=== PATIENT | female | born 2000 | race Hispanic/Latino ===

== ENCOUNTER 2019-08-23 00:04 | Emergency (ER) | payer BC, MEDICAID ==
[2019-08-23 00:23] LABS: APPEARANCE,URINE Turbid (CLEAR); BILIRUBIN,URINE Negative (NEGATIVE); COLOR,URINE Yellow (YELLOW); GLUCOSE, URINE (UA) Negative (NEGATIVE); KETONES,URINE Negative (NEGATIVE); LEUKOCYTE ESTERASE ,URINE Small (NEGATIVE); NITRATE,URINE Negative (NEGATIVE); OCCULT BLOOD,URINE Large (NEGATIVE); PH,URINE 6.5 (5.0-8.0); PROTEIN,URINE Negative (NEGATIVE)
[2019-08-23] MEDS ORDERED: NITROFURANTOIN MONOHYD/M-CRYST 100 MG CAPSULE PO ONE (00:39)
[2019-08-23 00:45] LABS: AMORPHOUS SEDIMENT,UR Many /LPF (None Seen); BACTERIA,URINE Few /HPF (None Seen); SQUAMOUS EPITHELIAL CELL,UR Moderate /HPF (0-2)
== END 2019-08-23 00:48 | disposition home or self-care (01) ==
LOC: EDH 00:04
DX: O23.41 Unspecified infection of urinary tract in pregnancy, first trimester (principal); O20.0 Threatened abortion; Z3A.13 13 weeks gestation of pregnancy; Z88.5 Allergy status to narcotic agent
CPT/HCPCS: 81001; 87088

== ENCOUNTER 2019-12-12 16:59 | Inpatient (IN) | payer BC ==
[~2019-12-12] VITALS: Ht 152.4 cm; Wt 79.8 kg
[2019-12-12] MEDS ORDERED: MAGNESIUM SULFATE 1,000 ML IV PRN (17:50)
[2019-12-12] MEDS ORDERED: LACTATED RINGERS 1000ML 1,000 ML IV PRN (17:50)
[2019-12-12] MEDS ORDERED: LACTATED RINGERS 1000ML 1,000 ML IV ONE (17:53)
[2019-12-12] MEDS ORDERED: MAGNESIUM 4GM PREMIX 100ML 100 ML IV ONE ×2 (17:54→17:59)
[2019-12-12] MEDS ORDERED: MAGNESIUM SULFATE 1,000 ML IV ONE (17:55)
[2019-12-12] MEDS ORDERED: CELESTONE SOLUSPAN 6 MG/ML 5ML VIAL ONE (17:59)
[2019-12-12] MEDS ORDERED: CALCIUM GLUCONATE 1 GM/10 ML VIAL IV PRN (18:00)
[2019-12-12] MEDS ORDERED: MAGNESIUM 4GM PREMIX 100ML 100 ML IV SCH (18:00)
[2019-12-12] MEDS ORDERED: CELESTONE SOLUSPAN 6 MG/ML 5ML VIAL IM SCH (18:00)
[2019-12-12] MEDS ORDERED: MAGNESIUM 2GM PREMIX 50ML 50 ML IV SCH (18:00)
[2019-12-12] MEDS ORDERED: MAGNESIUM 4GM PREMIX 100ML 100 ML IV PRN (18:00)
[2019-12-12 18:19] LABS: HEMATOCRIT 33.8 % (36-48); MEAN CORPUSCULAR HEMOGLOBIN 28.4 pg (27.0-33.0); MEAN CORPUSCULAR HGB CONC 32.2 g/dL (32.0-36.0); RED BLOOD CELL COUNT(AUTO) 3.84 MIL/uL (4.00-5.50); RED CELL DISTRIBUTION WIDTH 13.3 % (11.0-15.5); WHITE BLOOD COUNT (AUTO) 12.3 K/uL (4.8-10.8)
[2019-12-12 18:21] LABS: APPEARANCE,URINE Clear (CLEAR); BILIRUBIN,URINE Negative (NEGATIVE); COLOR,URINE Yellow (YELLOW); GLUCOSE, URINE (UA) Negative (NEGATIVE); KETONES,URINE Negative (NEGATIVE); LEUKOCYTE ESTERASE ,URINE Large (NEGATIVE); NITRATE,URINE Negative (NEGATIVE); OCCULT BLOOD,URINE Trace (NEGATIVE); PROTEIN,URINE Negative (NEGATIVE); UROBILINOGEN,URINE 0.2 mg/dL (0.2-1.0)
[2019-12-12] MEDS ORDERED: ONDANSETRON HCL 4 MG/2 ML VIAL ONE (18:28)
[2019-12-12 18:29] LABS: AMPHET/METH SCREEN,URINE NEGATIVE (NEGATIVE); BARBITURATE SCREEN, URINE NEGATIVE (NEGATIVE); BENZODIAZEPINES SCREEN,URINE NEGATIVE (NEGATIVE); CANNABINOID SCREEN,URINE NEGATIVE (NEGATIVE); COCAINE SCREEN,URINE NEGATIVE (NEGATIVE); OPIATE SCREEN,URINE NEGATIVE (NEGATIVE); PHENCYCLIDINE SCREEN,URINE NEGATIVE (NEGATIVE)
[2019-12-12 18:31] LABS: RBC,URINE 0-1 /HPF (0-1)
[2019-12-12 18:32] LABS: BACTERIA,URINE Few /HPF (None Seen); SQUAMOUS EPITHELIAL CELL,UR Few /HPF (0-2)
[2019-12-12 19:06] VITALS: BP 127/70
[2019-12-12] MEDS ORDERED: ONDANSETRON HCL 4 MG/2 ML VIAL IVP SCH (19:15)
[2019-12-12] MEDS ORDERED: PORACTANT ALFA 240 MG/3 ML VIAL IH ONE (19:57)
[2019-12-12] MEDS ORDERED: WITCH HAZEL 1 PAD TP PRN (20:30)
[2019-12-12] MEDS ORDERED: ACETAMINOPHEN-CODEINE 300/30MG TAB PO PRN (20:30)
[2019-12-12] MEDS ORDERED: LANOLIN 30GM OINTMENT TP PRN (20:30)
[2019-12-12] MEDS ORDERED: OXYTOCIN-LR 20 UNITS/1000 ML 1,000 ML IV SCH (20:30)
[2019-12-12] MEDS ORDERED: MEASLES/MUMPS/RUBELLA VACCINE, LIVE 0.5 ML/VIAL SQ PRN (20:30)
[2019-12-12] MEDS ORDERED: IBUPROFEN 600 MG TABLET PO PRN (20:30)
[2019-12-12] MEDS ORDERED: BENZOCAINE/LANOLIN/ALOE VERA 60 ML AEROSOL TP PRN (20:30)
[2019-12-12] MEDS ORDERED: ACETAMINOPHEN 325 MG TAB PO PRN (20:30)
[2019-12-12] MEDS ORDERED: DIPH,PERTUSS(ACELL),TET VAC/PF 0.5 ML VIAL IM PRN (20:30)
[2019-12-12] MEDS ORDERED: LIDOCAINE HCL 1% 20 ML VIAL ONE (22:24)
[2019-12-12] MEDS: DOCUSATE SODIUM 100 MG CAP PO SCH (22:26)
--- NOTE | 2019-12-12 23:27 | NUR ---
TRANSPORT TEAM IN PT'S ROOM WITH BABY AT 2327 AND LEFT AT 2334 TO TRANSFER BABY TO [place]. Addendum: 12/13/19 at 0105 by MAGALIS HOANG RN RN Amended: Links added.
[2019-12-12 23:45] VITALS: BP 125/69
[2019-12-13] MEDS ORDERED: PREN-154 PO (00:24)
[2019-12-13] MEDS: OXYTOCIN-LR 20 UNITS/1000 ML 1,000 ML IV SCH ×2 (01:06→01:22)
[2019-12-13] MEDS: CLINDAMYCIN 600 MG/D5% WATER 50 ML IV SCH ×5 (01:26→06:22)
[2019-12-13 02:44] VITALS: BP 114/72
[2019-12-13 08:02] LABS: MEAN CORPUSCULAR HEMOGLOBIN 28.4 pg (27.0-33.0); MEAN CORPUSCULAR HGB CONC 32.4 g/dL (32.0-36.0); MEAN CORPUSCULAR VOLUME 87.9 fL (80-100); RED BLOOD CELL COUNT(AUTO) 3.87 MIL/uL (4.00-5.50); RED CELL DISTRIBUTION WIDTH 13.2 % (11.0-15.5); WHITE BLOOD COUNT (AUTO) 20.2 K/uL (4.8-10.8)
[2019-12-13 08:09] VITALS: BP 124/67
[2019-12-13] MEDS: DOCUSATE SODIUM 100 MG CAP PO SCH (08:29)
--- NOTE | 2019-12-13 08:45 | NUR ---
Dr. López called and gave her an update on her pt, and ordered that pt can be discharged Addendum: 12/13/19 at 0859 by MARTÍN GENAO RN Amended: Links added.
--- NOTE | 2019-12-13 08:55 | NUR ---
pt is discharge in stable condition, verbal and written discharge instructions given, refer to exit care. Informed of the follow up appointment, prescription given. Informed to call the doctor for future concerns. Pt voiced understanding to all things discussed. Addendum: 12/13/19 at 0904 by MARTÍN GENAO RN Amended: Links added.
--- NOTE | 2019-12-13 09:40 | NUR ---
pt is dismissed in stable condition, brought to private car via wheelchair by Danielle Garcia pcp Addendum: 12/13/19 at 0950 by MARTÍN GENAO RN Amended: Links added.
[2019-12-13 12:47] LABS: RAPID PLASMA REAGIN NONREACTIVE (NONREACTIVE)
[2019-12-14 10:14] LABS: HEPATITIS Bs ANTIGEN SCREEN P Negative (Negative)
== END 2019-12-13 09:40 | disposition home or self-care (01) | DRG 807 ==
LOC: EDH 16:59 → OBSVTOIN 17:00 → LDH 17:00 → WSH 12-13 00:35
PROC: 10E0XZZ Delivery of Products of Conception, External Approach (ICD-10-PCS; principal; 2019-12-12)
PROC: 0KQM0ZZ Repair Perineum Muscle, Open Approach (ICD-10-PCS; 2019-12-12)
PROC: 3E0234Z Introduction of Serum, Toxoid and Vaccine into Muscle, Percutaneous Approach (ICD-10-PCS; 2019-12-12)
PROC: 3E0134Z Introduction of Serum, Toxoid and Vaccine into Subcutaneous Tissue, Percutaneous Approach (ICD-10-PCS; 2019-12-12)
DX: O60.14X0 Preterm labor third trimester with preterm delivery third trimester, not applicable or unspecified (principal); Z37.0 Single live birth; O70.1 Second degree perineal laceration during delivery; Z3A.28 28 weeks gestation of pregnancy; Z23 Encounter for immunization
CPT/HCPCS: 36415; 76805; 80305; 81001; 85027; 86592; 86701; 86850; 86900; 86901; 87088; 87340; 87390; 90707; A4314; G0378; J0702; J2405; J2590; J3475; J3490; J7120

== ENCOUNTER 2023-06-04 12:04 | Emergency (ER) | payer MEDICAID, OTHER ==
[~2023-06-04] VITALS: Ht 152.4 cm; Wt 81.6 kg
[2023-06-04 12:16] VITALS: BP 127/83; PULSE 71; RESP 18
[2023-06-04 12:51] LABS: HCG,QUALITATIVE URINE NEGATIVE (NEGATIVE)
[2023-06-04 12:53] LABS: APPEARANCE,URINE TURBID (CLEAR); BILIRUBIN,URINE NEGATIVE (NEGATIVE); COLOR,URINE RED (YELLOW); GLUCOSE, URINE (UA) NEGATIVE (NEGATIVE); KETONES,URINE NEGATIVE (NEGATIVE); LEUKOCYTE ESTERASE ,URINE TRACE Leu/uL (NEGATIVE); NITRATE,URINE NEGATIVE (NEGATIVE); OCCULT BLOOD,URINE LARGE (NEGATIVE); PROTEIN,URINE 100 mg/dL (NEGATIVE); UROBILINOGEN,URINE 0.2 mg/dL (0.2-1.0)
[2023-06-04 12:54] LABS: ADD UA MICROSCOPIC YES
[2023-06-04 12:55] LABS: BACTERIA,URINE Rare /HPF (None Seen); RBC,URINE TNTC /HPF (0-1); SQUAMOUS EPITHELIAL CELL,UR Rare /HPF (0-2)
[2023-06-04 13:33] LABS: BASOPHILS # (AUTO) 0.03 K/uL (0.00-0.20); BASOPHILS % (AUTO) 0.5 % (0.0-5.0); EOSINOPHILS # (AUTO) 0.14 K/uL (0.00-0.70); EOSINOPHILS % (AUTO) 2.4 % (0.0-8.0); HEMATOCRIT 36.7 % (36-48); IMMATURE GRANULOCYTE ABSOLUTE 0.01 K/uL (0-1); LYMPHOCYTES # (AUTO) 2.2 K/uL (1.0-4.8); MEAN CORPUSCULAR HEMOGLOBIN 27.2 pg (27.0-33.0); MEAN CORPUSCULAR VOLUME 82.5 fL (79-99); MONOCYTES # (AUTO) 0.4 K/uL (0.1-1.0); MONOCYTES % (AUTO) 6.9 % (3.0-13.0); PLATELET COUNT (AUTO) 257 K/uL (130-400); RED BLOOD CELL COUNT(AUTO) 4.45 MIL/uL (4.00-5.50); RED CELL DISTRIBUTION WIDTH 13.2 % (11.0-15.5); WHITE BLOOD COUNT (AUTO) 5.8 K/uL (4.8-10.8)
[2023-06-04 14:07] LABS: CREATININE 0.6 mg/dL (0.5-1.5); POTASSIUM 4.1 mmol/L (3.5-5.1)
[2023-06-04 14:14] LABS: ALBUMIN 3.7 g/dL (3.5-5.0); BILIRUBIN,TOTAL 0.2 mg/dL (0.2-1.0); TOTAL PROTEIN, SERUM 7.3 g/dL (6.0-8.3)
== END 2023-06-04 14:46 | disposition home or self-care (01) ==
LOC: EDH 12:04
DX: N93.8 Other specified abnormal uterine and vaginal bleeding (principal); Z88.0 Allergy status to penicillin; Z88.8 Allergy status to other drugs, medicaments and biological substances
CPT/HCPCS: 36415; 80053; 81001; 81025; 84702; 85025

== ENCOUNTER 2023-07-28 12:15 | Emergency (ER) | payer OTHER ==
[~2023-07-28] VITALS: Ht 152.4 cm; Wt 81.6 kg
[2023-07-28] MEDS: DEXAMETHASONE SOD PHOSPHATE 4 MG/ML 1ML VIAL IM ONE (13:25)
[2023-07-28] MEDS: IBUPROFEN 800 MG TAB PO ONE (13:26)
[2023-07-28] MEDS ORDERED: IBUP-2077 PO (13:58)
[2023-07-28 15:05] VITALS: BP 131/102; PULSE 86; RESP 17; O2SAT 98
== END 2023-07-28 15:06 | disposition home or self-care (01) ==
LOC: EDH 12:15
DX: S66.811A Strain of other specified muscles, fascia and tendons at wrist and hand level, right hand, initial encounter (principal); Z88.0 Allergy status to penicillin; Z88.8 Allergy status to other drugs, medicaments and biological substances; X58.XXXA Exposure to other specified factors, initial encounter; Y93.89 Activity, other specified; Y92.89 Other specified places as the place of occurrence of the external cause; Y99.8 Other external cause status
CPT/HCPCS: 99283; 73100; 96372; J1100